=== PATIENT | female | born 1985 | race Caucasian/White ===

== ENCOUNTER 2021-05-17 16:14 | Outpatient (REF) | payer BC, SELFPAY ==
[2021-05-17 21:06] LABS: HCT 42.6 % (36.0-46.0); HGB 13.8 g/dL (11.2-15.7); MCH 29.7 pg (27.0-33.0); MCHC 32.4 % (32.0-36.0); MCV 91.8 fL (80-95); MPV 10.1 fL (8.0-11.0); Platelet Count 361 10^3/uL (130-400); RBC 4.64 10^6/uL (3.93-5.22); RDW 11.9 % (11.7-14.6); WBC 8.45 10^3/uL (4.4-10.8)
[2021-05-17 21:17] LABS: Iron 121 ug/dL (50-170); Total Iron Binding Capacity 375 ug/dL (250-450); Transferrin Sat 32 % (15-50)
[2021-05-17 21:26] LABS: Anion Gap 6.9 mmol/L (3-11); BUN 12 mg/dL (7-18); CO2 28.1 mmol/L (21.0-32.0); CREATININE 0.7 mg/dL (0.55-1.02); Calcium 9.3 mg/dL (8.5-10.1); Chloride 99 mmol/L (98-107); Glucose 96 mg/dL (74-106); Potassium 4.1 mmol/L (3.5-5.1); Sodium 134 mmol/L (136-145); TSH (W/Ref FT4) 2.04 uIU/mL (0.36-3.74)
[2021-05-18 17:45] LABS: FSH 12.3 mIU/mL (See Note)
[2021-05-18 17:53] LABS: Estradiol 68 pg/mL (See Note); Prolactin 14.7 ng/mL (See Table)
[2021-05-18 17:57] LABS: Progesterone 0.5 ng/mL (See Table)
== END 2021-05-17 16:15 | disposition home or self-care (01) ==
LOC: NCHCN 16:14
PROVIDERS: Visit Provider Nurse Practitioner Family
DX: Z31.41 Encounter for fertility testing (principal)
CPT/HCPCS: 80048; 85027; 82670; 83001; 83540; 83550; 84144; 84146; 84443

== ENCOUNTER 2022-10-17 16:16 | Outpatient (CLI) | payer BC, SELFPAY ==
[2022-10-17 16:55] LABS: HCG Quant, Pregnancy 7489 mIU/mL (1-3)
== END 2022-10-17 16:17 | disposition home or self-care (01) ==
LOC: LBO 16:19
PROVIDERS: Visit Provider Advanced Practice Midwife
DX: O20.9 Hemorrhage in early pregnancy, unspecified (principal); Z3A.00 Weeks of gestation of pregnancy not specified
CPT/HCPCS: 36415; 84702

== ENCOUNTER 2024-04-23 14:55 | Outpatient (REF) | payer MEDICAID, SELFPAY ==
--- NOTE | 2024-04-23 08:30 | PAPFT_PTH ---
PATIENT: Nicolasa Retana LOC: [facility] U#:[id number] AGE/SX: 38/F ROOM: RE04/23/[address]: Maribell Nicholson : 1985 BED: DIS: 04/23/2024 SPEC #: [id number] RECD: 04/23/24 18:13 STATUS: YUE REQ #: [id number] BALA: 04/23/24 08:[address]: Maribell Nicholson DEPT: [facility] Cytology RECD BY: Amanda Llanes Tissues: 1 - CX/ENDOCX FOR PAP SMEARS Procedures: PAP THIN PREP/[facility] Screening HPV DNA PROBE Comments: [id number] (HPV 16 & 18/45)
== END 2024-04-23 14:56 | disposition home or self-care (01) ==
LOC: NCHCN 14:55
PROVIDERS: PCP Nurse Practitioner Family; Visit Provider Nurse Practitioner Family
DX: Z11.51 Encounter for screening for human papillomavirus (HPV) (principal); Z01.419 Encounter for gynecological examination (general) (routine) without abnormal findings
CPT/HCPCS: 88142; 87624